=== PATIENT | female | born 2000 | race African-American/Black ===

== ENCOUNTER 2025-03-20 19:05 | Emergency (ER) | payer OTHER ==
[~2025-03-20] VITALS: Ht 165.1 cm; Wt 95.0 kg
[2025-03-20 19:19] VITALS: BP 125/73; PULSE 88; RESP 18; TEMP 98.2; O2SAT 98
== END 2025-03-21 01:52 | disposition left against medical advice (07) ==
LOC: EMS 19:12
DX: N64.4 Mastodynia (principal); Z53.21 Procedure and treatment not carried out due to patient leaving prior to being seen by health care provider
CPT/HCPCS: 99281; Z7502